=== PATIENT | male | born 1970 | race American Indian/Alaskan Native ===

== ENCOUNTER → 2018-07-23 | Outpatient (CLI) | payer BC | END | disposition home or self-care (01) | LOC: SLR 11:00 | PROVIDERS: ATTEND Otolaryngology | DX: G47.33 Obstructive sleep apnea (adult) (pediatric) (principal); R40.0 Somnolence; R06.83 Snoring | CPT/HCPCS: G0399 ==

== ENCOUNTER 2018-08-15 11:00 | Outpatient (CLI) | payer BC | END 2018-08-15 11:01 | disposition home or self-care (01) | LOC: SLR 11:00 | PROVIDERS: ATTEND Otolaryngology | DX: G47.33 Obstructive sleep apnea (adult) (pediatric) (principal); R40.0 Somnolence; R06.83 Snoring | CPT/HCPCS: 95811 ==

== ENCOUNTER 2019-02-25 07:14 | Outpatient (CLI) | payer BC ==
--- NOTE | 2019-02-25 15:16 | Fluoroscopy Report ---
MODIFIED BARIUM SWALLOW History: dysphagia. Findings: Video radiography was provided by the radiologist for speech therapy to assess the swallowing mechanism. 1 fluoroscopic image was captured. Impression: Successful modified barium swallow.
== END 2019-02-25 07:15 | disposition home or self-care (01) ==
LOC: PT 07:14
PROVIDERS: ATTEND Otolaryngology
DX: R06.82 Tachypnea, not elsewhere classified (principal); R13.10 Dysphagia, unspecified
CPT/HCPCS: 74230